=== PATIENT | male | born 1995 | race African-American/Black ===

== ENCOUNTER 2016-11-18 13:32 | Emergency (ER) | payer OTHER ==
[~2016-11-18] VITALS: Ht 177.8 cm; Wt 61.2 kg
[~2016-11-18 13:32] MED LIST: BACTRIM DS TAB1 EACH PO; ERYTHROMYCIN E3.5 G3 OPHTHALMIC; IBUPROFEN 600600 M1 PO; MOBIC15 MG PO; NOHOMEMEDICATIONS; PREDNISONE 20 M20 MG PO
[2016-11-18] MEDS ORDERED: MOBIC15 MG PO (14:16)
[2016-11-18 14:37] VITALS: BP 139/89
[2016-12-18] MEDS ORDERED: KEFLEX500 M1 PO (15:56)
[2016-12-18] MEDS ORDERED: MOBIC15 MG PO (15:56)
[2017-01-02] MEDS ORDERED: ALDARA1 EACH TP (10:01)
== END 2016-11-18 14:37 | disposition home or self-care (01) ==
LOC: ER 13:32
DX: S90.32XA Contusion of left foot, initial encounter (principal); V29.9XXA Motorcycle rider (driver) (passenger) injured in unspecified traffic accident, initial encounter; Y93.55 Activity, bike riding; Y92.89 Other specified places as the place of occurrence of the external cause; Y99.8 Other external cause status